=== PATIENT | male | born 1960 | race Caucasian/White ===

== ENCOUNTER 2016-12-21 13:40 | Emergency (ER) | payer SELFPAY ==
[~2016-12-21] VITALS: Ht 175.3 cm; Wt 65.0 kg
[2016-12-21] MEDS ORDERED: SODIUM CHLOR 0.9% 1000 ML INJ 1,000 ML IV ONE (13:43)
[2016-12-21] MEDS ORDERED: SODIUM CHLORIDE 0.9% FLUSH 5 ML FLUSH IVF PRN (13:45)
--- NOTE | 2016-12-21 13:48 | PD ---
HPI Chief Complaint: seizure Time Seen by Provider: 13:30 Travel History International Travel<30 days: No Contact w/Intl Traveler<30days: No Traveled to known affect area: No History of Present Illness HPI 56-year-old male presents via EMS for evaluation. The patient reports that prior to arrival he was sitting at [employer] eating a sandwich and then he lost consciousness. He woke up still sitting in the chair. He believes that he may have had a seizure. He has a history of seizure disorder, frequent seizures. He Currently takes Depakote and Tegretol for seizure disorder which he reports that he's been taking as prescribed. Per the package liner he was seen by bystanders to be "staring off into space" for several seconds and then his head tilted forward and hit the table in front of him. There was no tonic-clonic seizure-like activity. The patient denies any tongue biting or incontinence. At this point time the patient feels well. He does note some pain in his neck. He denies any headache, chest pain, palpitation, shortness of breath, nausea, vomiting. Denies any drug or alcohol use. He has no other complaints. [facility] Past Medical History Seizures: Yes Social History Alcohol Use: No Tobacco Use: No Allergies-Medications (Allergen,Severity, Reaction): Coded Allergies: No Known Allergies (Unverified , 12/21/16) Review of Systems Except as stated in HPI: all other systems reviewed are Neg Physical Exam Narrative GENERAL: Well-developed well-nourished male in no acute distress cervical collar in place. SKIN: Warm and dry. HEAD: Atraumatic. Normocephalic. EYES: Pupils equal and round. No scleral icterus. No injection or drainage. ENT: No nasal bleeding or discharge. Mucous membranes pink and moist. NECK: Trachea midline. No JVD. CARDIOVASCULAR: Regular rate and rhythm. No murmur appreciated. RESPIRATORY: No accessory muscle use. Clear to auscultation. Breath sounds equal bilaterally. GASTROINTESTINAL: Abdomen soft, non-tender, nondistended. MUSCULOSKELETAL: No obvious deformities. There is some tenderness to palpation along the cervical spine. Therefore the cervical collar will remain in place. NEUROLOGICAL: Awake and alert. No obvious cranial nerve deficits. Motor grossly within normal limits. Normal speech. PSYCHIATRIC: Appropriate mood and affect; insight and judgment normal. Data Data Last Documented VS Vital Signs Date Time Temp Pulse Resp B/P Pulse Ox O2 Delivery O2 Flow Rate FiO2 12/21/16 14:24 98.2 79 18 115/71 100 Orders Complete Blood Count With Diff (12/21/16 13:43) Basic Metabolic Panel (Bmp) (12/21/16 13:43) Carbamazepine (Tegretol) (12/21/16 13:43) Valproic Acid (Depakene) (12/21/16 13:43) Electrocardiogram (12/21/16 ) Blood Glucose (12/21/16 13:43) Ecg Monitoring (12/21/16 13:43) Iv Access Insert/Monitor (12/21/16 13:43) Oximetry (12/21/16 13:43) Sodium Chlor 0.9% 1000 Ml Inj (Ns 1000 M (12/21/16 13:43) Sodium Chloride 0.9% Flush (Ns Flush) (12/21/16 13:45) Ct Cerv Spine W/O Contrast (12/21/16 ) Labs Laboratory Tests Test 12/21/16 14:41 White Blood Count 3.7 TH/MM3 Red Blood Count 4.17 MIL/MM3 Hemoglobin 12.8 GM/DL Hematocrit 38.5 % Mean Corpuscular Volume 92.2 FL Mean Corpuscular Hemoglobin 30.6 PG Mean Corpuscular Hemoglobin 33.2 % Concent Red Cell Distribution Width 14.1 % Platelet Count 124 TH/MM3 Mean Platelet Volume 8.7 FL Neutrophils (%) (Auto) 42.3 % Lymphocytes (%) (Auto) 40.7 % Monocytes (%) (Auto) 15.6 % Eosinophils (%) (Auto) 0.9 % Basophils (%) (Auto) 0.5 % Neutrophils # (Auto) 1.6 TH/MM3 Lymphocytes # (Auto) 1.5 TH/MM3 Monocytes # (Auto) 0.6 TH/MM3 Eosinophils # (Auto) 0.0 TH/MM3 Basophils # (Auto) 0.0 TH/MM3 CBC Comment DIFF FINAL Differential Comment Sodium Level 141 MEQ/L Potassium Level 4.1 MEQ/L Chloride Level 106 MEQ/L Carbon Dioxide Level 30.2 MEQ/L Anion Gap 5 MEQ/L Blood Urea Nitrogen 19 MG/DL Creatinine 0.78 MG/DL Estimat Glomerular Filtration 103 ML/MIN Rate Random Glucose 120 MG/DL Calcium Level 8.8 MG/DL Valproic Acid (Depakene) Level 107 MCG/ML Carbamazepine (Tegretol) Level 19.6 MCG/ML MDM Medical Decision Making Medical Screen Exam Complete: Yes Emergency Medical Condition: Yes Medical Record Reviewed: Yes Differential Diagnosis Absence seizure, syncope, dehydration, orthostatic hypotension, hypoglycemia, symptomatic anemia, electrolyte abnormality Narrative Course 56-year-old male with history of seizure disorder presents after having a witnessed episode of "staring off into space" while sitting in a [employer] sandwich shop. His head tilted forward while eating a sandwich and hit the table. He does not recall these events and believes that he likely had a breakthrough seizure. He currently takes Depakote and Tegretol for seizure disorder. He is currently complaining of some soreness in his neck and on examination he does have some midline tenderness to palpation along the cervical spine. Therefore the cervical collar will remain in place and a CT of the cervical spine is been ordered. Basic lab work, IV fluids, EKG have been ordered. The patient be monitored closely. I have discussed with my attending who agrees with plan of care. The patient's lab work is been reviewed. His dad BBC count is 3.7, platelet count is 124. His valproic acid is supratherapeutic at 107, carbamazepine is supratherapeutic at 19.6. The patient refused CT of the cervical spine and he refused EKG. The patient is wanting to leave AGAINST MEDICAL ADVICE. I explained him that I would like to obtain the CT of the cervical spine because he is having neck pain after the fall and the EKG given the risk of arrhythmia and interval changes secondary to carbamazepine toxicity. I would also like to consult poison control however the patient is refusing these recommendations. He is of sound mind and is able to make these decisions after receiving all of the information available at this time. There was no attempted overdose, he is not depressed or suicidal. I encouraged the patient to return at any time if he changes his mind. AMA: The risks of leaving against medical advice without further evaluation treatment were discussed with the patient. These risks include cardiac dysfunction, cardiac dysrhythmia, possible heart attack, possible stroke or . The patient indicated understanding of these risks and appeared to have the capacity to make this decision. Diagnosis Primary Impression: Left against medical advice Additional Instructions: As discussed, your levels of Tegretol and valproic acid were too high. This can cause breakthrough seizures, arrhythmias, coma, , tachycardia. We wanted to stay for observation however he decided to leave AGAINST MEDICAL ADVICE. You are welcome to return at any time. Follow-up closely with her primary care physician early next week, hold your medication for the next 3 days in order to let your levels become more normal. Med/Other Pt SpecificInfo: No Change to Meds Disposition: 07 AGAINST MEDICAL ADVICE Condition: Stable Adrian Shay Dec 21, 2016 13:48
[2016-12-21 14:24] VITALS: BP 115/71; PULSE 79; RESP 18; TEMP 98.2; O2SAT 100
[2016-12-21 15:06] LABS: AUTOMATED NEUTROPHIL # 1.6 TH/MM3 (1.8-7.7); BASOPHIL % 0.5 % (0.0-2.0); EOSINOPHIL % 0.9 % (0.0-4.0); HEMATOCRIT 38.5 % (39.0-51.0); HEMO FLAGS DIFF FINAL; LYMPH % 40.7 % (9.0-44.0); LYMPHOCYTE # 1.5 TH/MM3 (1.0-4.8); MEAN CELL VOLUME 92.2 FL (80.0-100.0); MEAN CORPUSCULAR HEMOGLOBIN 30.6 PG (27.0-34.0); MEAN CORPUSCULAR HGB CONC 33.2 % (32.0-36.0); MONO % 15.6 % (0.0-8.0); NEUT % 42.3 % (16.0-70.0); PLATELET COUNT 124 TH/MM3 (150-450); RED BLOOD COUNT 4.17 MIL/MM3 (4.50-5.90); RED CELL DISTRIBUTION WIDTH 14.1 % (11.6-17.2); WHITE BLOOD COUNT 3.7 TH/MM3 (4.0-11.0)
[2016-12-21 15:17] LABS: BICARBONATE 30.2 MEQ/L (21.0-32.0); POTASSIUM 4.1 MEQ/L (3.5-5.1)
== END 2016-12-21 16:42 | disposition left against medical advice (07) ==
LOC: NEDAMB 13:40
DX: M54.2 Cervicalgia (principal); R78.89 Finding of other specified substances, not normally found in blood; Z86.69 Personal history of other diseases of the nervous system and sense organs; Z53.20 Procedure and treatment not carried out because of patient's decision for unspecified reasons
CPT/HCPCS: 80048; 80156; 80164; 85025; 99284; J7030